=== PATIENT | male | born 1995 | race Hispanic/Latino ===

== ENCOUNTER 2023-01-24 04:30 | Inpatient (IN) | payer BC, OTHER, SELFPAY ==
[2023-01-24] MEDS ORDERED: Lorazepam 2 MG/ML VIAL ONE ×4 (05:08→11:48)
[2023-01-24] MEDS ORDERED: Thiamine HCl 200 MG/2 ML VIAL ONE (05:39)
[2023-01-24 05:49] LABS: #Monocytes 0.4 10x3/uL (0.0-1.1); #Neutrophils 3.9 10x3/uL (1.5-8.4); %Basophils 0.4 % (0.0-2.0); %Eosinophils 0.2 % (0.0-6.0); %Lymphocytes 6.5 % (18.0-47.0); %Monocytes 9.3 % (0.0-10.0); %Neutrophils 83.4 % (40.0-75.0); Hemoglobin 13.7 g/dL (13.5-17.5); Mean Corpuscular Hemoglobin 33.3 pg (27.0-33.0); Mean Corpuscular Volume 95.1 fl (81.2-95.1); Mean Platelet Volume 11.4 fl (7.4-10.4); Platelet Count 74 10x3/uL (150-450); RBC Distribution Width 11.5 % (11.5-14.5); Red Blood Cell (RBC) Count 4.11 10x6/uL (4.32-5.72); White Blood Cell (WBC) Count 4.6 10x3/uL (3.5-10.5)
[2023-01-24 06:05] LABS: ALT (SGPT) 123 U/L (8-55); AST (SGOT) 322 U/L (5-34); Acetaminophen Less than 10.0 mcg/mL (10.0-30.0); Alcohol Less than 10 mg/dL (Less than 10); Alkaline Phosphatase 110 U/L (40-110); Anion Gap 21 mmol/L (10-20); BUN (Urea Nitrogen) 5 mg/dL (8.9-20.6); Bilirubin, Total 5.1 mg/dL (0.2-1.2); Calc. Creatinine Clearance 0 mL/min (70-130); Calcium 8.9 mg/dL (7.8-10.44); Carbon Dioxide 21 mmol/L (22-29); Chloride 93 mmol/L (98-107); Estimated GFR 126; Globulin 2.7 g/dL (2.4-3.5); Glucose 92 mg/dL (70-105); Magnesium 1.8 mg/dL (1.6-2.6); Potassium 3.4 mmol/L (3.5-5.1); Protein, Total 6.7 g/dL (6.0-8.3); Salicylate Less than 8.0 mg/dL (15.0-30.0); Sodium 132 mmol/L (136-145)
[2023-01-24 06:20] LABS: HIV (1/2) Antibody/Antigen Non-Reactive (NonReactive)
[2023-01-24] MEDS ORDERED: Potassium Chloride 20 MEQ TAB ONE (08:26)
[2023-01-24] MEDS ORDERED: Magnesium 2 GM/50 ML BAG (IN WATER) ONE ×2 (08:27→15:59)
[2023-01-24] MEDS ORDERED: Lorazepam 2 MG/ML VIAL IM PRN (08:38)
[2023-01-24] MEDS ORDERED: Lorazepam 1 MG TAB PO PRN (08:38)
[2023-01-24] MEDS ORDERED: Ondansetron PF 4 MG/2 ML Vial IVP PRN (08:38)
[2023-01-24] MEDS ORDERED: Acetaminophen 325 MG TAB PO PRN (08:38)
[2023-01-24] MEDS ORDERED: Electrolyte Replacement Protocol 1 EACH FS SCH (08:45)
[2023-01-24 09:12] LABS: INR-International Normal Ratio 1.3; PTT 27.4 sec (22.0-33.0); Prothrombin Time 13.5 sec (9.5-12.1)
[2023-01-24 09:59] LABS: Syphilis Antibody Nonreactive (Nonreactive); Syphilis Antibody Index 0.04 S/CO (<1.00 Non-Reactive)
[2023-01-24] MEDS ORDERED: QUEtiapine 25 MG TAB ONE (12:11)
[2023-01-24] MEDS ORDERED: QUEtiapine 25 MG TAB PO SCH (12:15)
[2023-01-24] MEDS ORDERED: Potassium Chloride 20 MEQ TAB PO SCH (13:00)
[2023-01-24] MEDS ORDERED: Magnesium 2 GM/50 ML(in water) 2 GM in Premix Bag 1 BAG IVPB SCH (13:00)
[2023-01-24] MEDS ORDERED: Ziprasidone 20 MG VIAL ONE (13:06)
[2023-01-24] MEDS ORDERED: Sterile Water 10 ML ONE (13:06)
[2023-01-24] MEDS: Thiamine HCl 200 MG/2 ML VIAL SLOW IVP SCH (15:43)
[2023-01-24] MEDS ORDERED: Lorazepam 1 MG TAB ONE ×2 (18:20→21:11)
[2023-01-24] MEDS: Lorazepam 1 MG TAB PO SCH ×3 (18:22→22:45)
[2023-01-24] MEDS: Folic Acid 1 MG TAB PO SCH (18:23)
[2023-01-24] MEDS ORDERED: Folic Acid 1 MG TAB ONE (18:26)
[2023-01-24] MEDS ORDERED: Famotidine 20 MG TAB ONE (21:10)
[2023-01-24] MEDS: Famotidine 20 MG TAB PO SCH (21:43)
[2023-01-24 22:34] VITALS: BMI 17.8
[2023-01-24] MEDS: Potassium Chloride 20 MEQ in Lactated Ringer's 1,000 ML IV SCH ×3 (22:45→23:32)
[2023-01-24 23:57] LABS: Amphetamine Not Detected (NotDetected); Barbiturates Screen Not Detected (NotDetected); Benzodiazepine Screen Detected (NotDetected); Cocaine Metabolite Screen Not Detected (NotDetected); Methadone Not Detected (NotDetected); Methamphetamine Not Detected (NotDetected); Opiate Screen Not Detected (NotDetected); Oxycodone Screen Not Detected (NotDetected); Phencyclidine (PCP) Not Detected (NotDetected); THC/Cannabinoid Screen Detected (NotDetected); Tricyclic Screen Not Detected (NotDetected)
[2023-01-25 00:48] LABS: Bilirubin, Direct 2.4 mg/dL (0.1-0.3); Magnesium 2.3 mg/dL (1.6-2.6)
[2023-01-25 01:17] LABS: Phosphorus 1.4 mg/dL (2.3-4.7)
[2023-01-25] MEDS: Lorazepam 1 MG TAB PO SCH ×4 (02:54→20:35)
[2023-01-25] MEDS: PHOS-NAK 1 PKT PACK PO SCH ×4 (04:27→17:37)
[2023-01-25 04:49] LABS: #Basophils 0.1 10x3/uL (0.0-0.2); #Monocytes 0.4 10x3/uL (0.0-1.1); #Neutrophils 2.3 10x3/uL (1.5-8.4); %Basophils 1.5 % (0.0-2.0); %Eosinophils 0.3 % (0.0-6.0); %Lymphocytes 15.6 % (18.0-47.0); %Monocytes 12.9 % (0.0-10.0); %Neutrophils 69.4 % (40.0-75.0); ALT (SGPT) 87 U/L (8-55); AST (SGOT) 187 U/L (5-34); Albumin 3.7 g/dL (3.5-5.0); Alkaline Phosphatase 93 U/L (40-110); Anion Gap 16 mmol/L (10-20); BUN (Urea Nitrogen) Less than 4 mg/dL (8.9-20.6); Bilirubin, Total 4.3 mg/dL (0.2-1.2); Calc. Creatinine Clearance 140 mL/min (70-130); Calcium 8.5 mg/dL (7.8-10.44); Carbon Dioxide 22 mmol/L (22-29); Chloride 100 mmol/L (98-107); Estimated GFR 131; Globulin 2.3 g/dL (2.4-3.5); Glucose 72 mg/dL (70-105); Hemoglobin 12.7 g/dL (13.5-17.5); Mean Corpuscular HGB CONC 34.8 g/dL (32.0-36.0); Mean Corpuscular Hemoglobin 33.2 pg (27.0-33.0); Mean Corpuscular Volume 95.3 fl (81.2-95.1); Mean Platelet Volume 11.6 fl (7.4-10.4); Platelet Count 73 10x3/uL (150-450); Potassium 3.4 mmol/L (3.5-5.1); RBC Distribution Width 11.5 % (11.5-14.5); Red Blood Cell (RBC) Count 3.83 10x6/uL (4.32-5.72); Sodium 135 mmol/L (136-145); White Blood Cell (WBC) Count 3.3 10x3/uL (3.5-10.5)
[2023-01-25] MEDS: Thiamine HCl 200 MG/2 ML VIAL SLOW IVP SCH (08:00)
[2023-01-25] MEDS: Folic Acid 1 MG TAB PO SCH (08:02)
[2023-01-25] MEDS: Ziprasidone 20 MG CAP PO SCH (08:04)
[2023-01-25] MEDS: Famotidine 20 MG TAB PO SCH ×2 (08:04→20:34)
[2023-01-25] MEDS ORDERED: Lorazepam 1 MG TAB PO PRN (08:38)
[2023-01-25] MEDS ORDERED: Potassium Chloride 20 MEQ TAB PO SCH (09:00)
[2023-01-25] MEDS ORDERED: Propranolol 40 MG TAB PO SCH (17:30)
[2023-01-25] MEDS ORDERED: Ziprasidone 20 MG VIAL IM SCH (19:15)
[2023-01-26] MEDS: Lorazepam 1 MG TAB PO SCH (03:10)
[2023-01-26 04:06] LABS: Anion Gap 15 mmol/L (10-20); BUN (Urea Nitrogen) 4 mg/dL (8.9-20.6); Calc. Creatinine Clearance 140 mL/min (70-130); Calcium 8.9 mg/dL (7.8-10.44); Carbon Dioxide 25 mmol/L (22-29); Chloride 103 mmol/L (98-107); Estimated GFR 131; Glucose 87 mg/dL (70-105); Potassium 3.7 mmol/L (3.5-5.1); Sodium 139 mmol/L (136-145)
[2023-01-26 04:07] LABS: Hemoglobin 13.4 g/dL (13.5-17.5); Mean Corpuscular HGB CONC 34.3 g/dL (32.0-36.0); Mean Corpuscular Hemoglobin 33.4 pg (27.0-33.0); Mean Corpuscular Volume 97.5 fl (81.2-95.1); Mean Platelet Volume 11.4 fl (7.4-10.4); Platelet Count 104 10x3/uL (150-450); RBC Distribution Width 11.6 % (11.5-14.5); Red Blood Cell (RBC) Count 4.01 10x6/uL (4.32-5.72); White Blood Cell (WBC) Count 3.5 10x3/uL (3.5-10.5)
[2023-01-26 04:08] LABS: MDiff Complete? YES
[2023-01-26 04:34] LABS: Lymphocytes 22 % (21-51); Monocytes 10 % (0-10); Neutrophil 66 % (42-75); Reactive Lymphocytes 2 % (0-10)
[2023-01-26 04:35] LABS: Hypochromia SLIGHT = 6-15 cells (100X) (0-5/hpf); Platelet Morphology Comment Appears Decreased
[2023-01-26] MEDS: Ziprasidone 20 MG CAP PO SCH (07:47)
[2023-01-26] MEDS: Famotidine 20 MG TAB PO SCH (07:47)
[2023-01-26] MEDS: Thiamine HCl 200 MG/2 ML VIAL SLOW IVP SCH (07:48)
[2023-01-26] MEDS: Lorazepam 0.5 MG TAB PO SCH ×2 (07:48→14:56)
[2023-01-26] MEDS: Folic Acid 1 MG TAB PO SCH (07:48)
[2023-01-26] MEDS ORDERED: Lorazepam 1 MG TAB PO PRN (08:38)
[2023-01-26 11:29] LABS: ALT (SGPT) 84 U/L (8-55); AST (SGOT) 167 U/L (5-34); Albumin 3.9 g/dL (3.5-5.0); Alkaline Phosphatase 106 U/L (40-110); Bilirubin, Direct 1.6 mg/dL (0.1-0.3); Bilirubin, Total 2.6 mg/dL (0.2-1.2); Protein, Total 6.5 g/dL (6.0-8.3)
[2023-01-26 12:30] VITALS: TEMP 99
[2023-01-26 12:46] LABS: HBSAg Index 0.14 S/CO (0-0.99); Hep B Surf Ag Non-Reactive S/CO (NonReactive)
[2023-01-26] MEDS ORDERED: Propranolol 40 MG TAB PO SCH (17:00)
[2023-01-26 17:16] VITALS: BP 138/86
[2023-01-26 18:33] LABS: Hep A IgM AB Non-Reactive (NonReactive); Hep A IgM S/CO 0.25 S/CO (0-0.79)
[2023-01-26 18:35] LABS: HBCM Index 0.09 S/CO (0-0.79); Hepatitis B Core IgM Abs Non-Reactive (NonReactive)
[2023-01-27] MEDS ORDERED: Lorazepam 0.5 MG TAB PO PRN (08:38)
[2023-01-27] MEDS ORDERED: Thiamine 100 MG TAB PO SCH (08:45)
[2023-01-27 11:57] LABS: Hep C IgG Ab Non-Reactive (NonReactive)
[2023-01-27 12:04] LABS: Hep C Index 0.07 S/CO (0-0.79)
== END 2023-01-26 18:00 | disposition home or self-care (01) | DRG 897 ==
LOC: CSHERS 04:30 → CSHERHOLD 11:42 → CSHTELE 22:14
PROVIDERS: ADMIT Internal Medicine; ATTEND Physician Assistant Medical
DX: F10.131 Alcohol abuse with withdrawal delirium (principal); R56.9 Unspecified convulsions; F41.1 Generalized anxiety disorder; F32.9 Major depressive disorder, single episode, unspecified; F60.2 Antisocial personality disorder; E87.6 Hypokalemia; R74.01 Elevation of levels of liver transaminase levels; R50.9 Fever, unspecified; D69.6 Thrombocytopenia, unspecified; F22 Delusional disorders; Z71.41 Alcohol abuse counseling and surveillance of alcoholic; Z79.899 Other long term (current) drug therapy
CPT/HCPCS: 36415; 70450; 71046; 76700; 80048; 80053; 80074; 80076; 80306; 80307; 82248; 83735; 84100; 85025; 85610; 85730; 86780; 87040; 87389; 87804; 93005; 96365; 96372; 96375; 96376; J2060; J3411; J3475; J3480; J3486; J7120